=== PATIENT | female | born 1945 | race Caucasian/White ===

== ENCOUNTER → 2017-11-23 09:52 | Outpatient (REF) | payer MEDICARE, MEDICAID, SELFPAY ==
[2017-11-23 16:03] LABS: Amphetamine/Metha Screen,Urine Negative ng/mL (<1000); Barbiturates Screen,Urine Negative ng/mL (<200); Benzodiazepines Screen,Urine Negative ng/mL (200); Cannabinoid Screen,Urine Negative ng/mL (<50); Cocaine Screen,Urine Negative ng/g (<300); Methadone Screen,Urine Negative ng/mL (<300); Opiate Screen,Urine Positive ng/mL (<300); Phencyclidine Screen,Urine Negative ng/mL (<25)
== END ==
LOC: LAB 09:52
PROVIDERS: Visit Provider Physician Assistant
DX: M79.7 Fibromyalgia (principal); E11.9 Type 2 diabetes mellitus without complications; Z79.899 Other long term (current) drug therapy
CPT/HCPCS: 80305

== ENCOUNTER → 2017-12-18 13:42 | Outpatient (CLI) | payer MEDICARE, MEDICAID, SELFPAY ==
[2017-12-18 14:09] LABS: Basophils % 0.5 % (0.1-2.0); Eosinophils # 0.1 K/mm3 (0.0-0.4); Eosinophils % 1.9 % (0.1-12.0); Hematocrit 37.7 % (37.0-47.0); Lymphocytes # 1.3 K/mm3 (0.7-4.5); Mean Corpuscular HGB Conc 31.9 g/dL (31.8-35.4); Mean Corpuscular Hemoglobin 29.5 pg (27.0-31.2); Mean Corpuscular Volume 92.6 fl (81-99); Mean Platelet Volume 7.9 fl (7.4-10.4); Monocytes # 0.4 K/mm3 (0.1-1.0); Monocytes % 6.3 % (1.7-9.3); Neutrophils # 4.2 K/mm3 (1.8-7.8); Neutrophils % 69.4 % (37.0-80.0); Platelet Count 261 K/mm3 (142-424); Red Blood Count 4.07 M/mm3 (4.20-5.40); Red Cell Distribution Width 12.9 % (11.5-17.5)
[2017-12-18 16:50] LABS: Alanine Aminotransferase 19 U/L (12-78); Albumin Level 3.9 gm/dL (3.4-5.0); Albumin/Globulin Ratio 1.1 (1.1-1.8); Alkaline Phosphatase 114 U/L (46-116); Anion Gap 18.7 mEq/L (5-15); Aspartate Amino Transferase 27 U/L (15-37); Bilirubin,Total 0.3 mg/dL (0.2-1.0); Blood Urea Nitrogen 19 mg/dL (7-18); Calcium 9.3 mg/dL (8.5-10.1); Carbon Dioxide 21 mmol/L (21.0-32.0); Chloride 103 mmol/L (98-107); Chol/HDL Ratio 4.1 (1-3.5); Cholesterol 245 mg/dL (140-200); Creatinine,Serum 0.86 mg/dL (0.55-1.02); Estimated Glomerular Filt Rate 65 ml/min (>60); GFR (African American) 78 ML/MIN (>60); Globulin 3.4 gm/dl (1.3-3.2); Glucose 139 mg/dL (74-106); HDL Cholesterol 60 mg/dL (29-89); LDL Cholesterol 151 mg/dL (0-130); Potassium 4.7 mmoL/L (3.5-5.1); Sodium 138 mmol/L (136-145); T4 (Thyroxine) 7.1 ug/dl (4.7-13.3); Thyroid Stimulating Hormone 1.64 uIU/ml (0.358-3.740); Total Protein,Serum 7.3 gm/dL (6.4-8.2); Triglycerides 170 mg/dL (30-200); VLDL Cholesterol 34 mg/dL (0-40)
== END ==
PROVIDERS: PCP Physician Assistant; Visit Provider Physician Assistant
DX: M79.7 Fibromyalgia (principal); E11.9 Type 2 diabetes mellitus without complications
CPT/HCPCS: 36415; 80053; 80061; 84436; 84443; 85025

== ENCOUNTER → 2018-01-26 10:46 | Outpatient (CLI) | payer MEDICARE, MEDICAID, SELFPAY ==
--- NOTE | 2018-01-26 10:54 | MR_ITS ---
MR cervical spine wo con, MR 3-d myelogram/MRCP HISTORY: Neck pain, bilateral finger numbness/ tingling. ITS.REASON: CERVICAL SPONDYLOSIS WITH MYELOPATHY ORDERING PHYSICIAN: Cata Arreguin MD PATIENT AGE: 72 years COMPARISON: Radiograph of 01/26/2018 TECHNIQUE: Standard multiplanar multiecho sequences are performed without contrast. 3-D MIP and myelographic images are also rendered and reviewed FINDINGS: The craniocervical junction has an unremarkable appearance. C2-C3: Mild degenerative disc disease with minimal bulging disc along with facet and uncovertebral hypertrophy with mild bilateral foraminal narrowing. The bulging disc slightly eccentric towards the left. C3-C4: Degenerative disc disease with bulging disc along with facet and ligamentum flavum hypertrophy. There is canal stenosis of 8 mm with mild flattening of both anterior and posterior aspect of the cord. There is bilateral lateral recess and foraminal narrowing. C4-C5: Degenerative disc disease with bulging disc. There is 4 mm anterolisthesis of C4. The bulging discs/disc osteophyte complex which is eccentric towards the left. There is narrowing of the canal along with bilateral lateral recess and foraminal narrowing. This is more extensive on the left. There is mild impingement with flattening of the anterior and posterior aspect of the cord with slight increase in T2 signal of the cord at this region and may be due to edema or gliosis. C5-C6: Degenerative disc disease with minimal anterolisthesis of C5 of 2 mm mild facet hypertrophic change. Bilateral foraminal narrowing C6-C7: Degenerative disc disease with bulging disc. There is 3 mm anterolisthesis of C6. There is narrowing of the canal with only minimal flattening of the anterior aspect of the cord. There is moderate left-sided foraminal narrowing and mild right-sided foraminal narrowing. C7-T1: Degenerative disc disease with bulging disc with 3 mm anterolisthesis of C7. No canal stenosis. No extruded herniated disc are evident. IMPRESSION: Multilevel cervical spondylosis with degenerative disc disease, bulging disc, facet and uncovertebral hypertrophy with resulting lateral recess and foraminal narrowing as well as canal stenosis. Please see above for detailed description at each level. The canal stenosis is worse at C3-C4 and C4-C5 with some mild compression upon the cord with slight increased T2 signal of the cord at the C4-C5 level.
--- NOTE | 2018-01-26 11:59 | XR_ITS ---
XR cervical spine w flex/ext CLINICAL INDICATION: ITS.REASON: neck pain ORDERING PHYSICIAN: Cata Arreguin MD PATIENT AGE: 72 years COMPARISON: None FINDINGS: There is multilevel cervical spondylosis with degenerative disc disease along with endplate and facet hypertrophic changes. Degenerative disc disease present at C3-C4, C4-C5, C5-C6, and C6-C7. There is 2 mm anterolisthesis of C4 and 3 mm anterolisthesis of C5. Foraminal narrowing is present on the right or and C4-C5 and on the left at C3-C4 and C4-C5. Multilevel facet arthritic changes with hypertrophy is present at C3-C7. There is mild head tilt toward the right. No cervical rib apparent. No acute fracture or dislocation. IMPRESSION: Cervical spondylosis with multilevel degenerative disc disease and facet arthritic change with foraminal narrowing as described above Mild anterolisthesis of C4 and C5
[2018-01-26 13:02] LABS: Hemoglobin A1C 7.1 % (0.0-7.0)
[2018-01-26 13:11] LABS: Basophils % 0.3 % (0.1-2.0); Eosinophils # 0.1 K/mm3 (0.0-0.4); Eosinophils % 1.8 % (0.1-12.0); Hematocrit 37.5 % (37.0-47.0); Hemoglobin 11.4 g/dL (12.2-16.2); Lymphocytes # 1.3 K/mm3 (0.7-4.5); Lymphocytes % 21.4 K/mm3 (10-50); Mean Corpuscular HGB Conc 30.5 g/dL (31.8-35.4); Mean Corpuscular Hemoglobin 29.2 pg (27.0-31.2); Mean Corpuscular Volume 95.7 fl (81-99); Mean Platelet Volume 8.5 fl (7.4-10.4); Monocytes # 0.4 K/mm3 (0.1-1.0); Monocytes % 5.7 % (1.7-9.3); Neutrophils # 4.4 K/mm3 (1.8-7.8); Neutrophils % 70.9 % (37.0-80.0); Platelet Count 238 K/mm3 (142-424); Red Blood Count 3.92 M/mm3 (4.20-5.40); Red Cell Distribution Width 12.8 % (11.5-17.5); White Blood Count 6.2 K/mm3 (4.8-10.8)
[2018-01-26 14:32] LABS: Alanine Aminotransferase 18 U/L (12-78); Albumin Level 3.7 gm/dL (3.4-5.0); Albumin/Globulin Ratio 1.1 (1.1-1.8); Alkaline Phosphatase 109 U/L (46-116); Anion Gap 13.9 mEq/L (5-15); Bilirubin,Total 0.2 mg/dL (0.2-1.0); Blood Urea Nitrogen 20 mg/dL (7-18); Calcium 9.4 mg/dL (8.5-10.1); Carbon Dioxide 27 mmol/L (21.0-32.0); Chloride 104 mmol/L (98-107); Creatinine,Serum 0.83 mg/dL (0.55-1.02); Estimated Glomerular Filt Rate 67 ml/min (>60); GFR (African American) 82 ML/MIN (>60); Globulin 3.5 gm/dl (1.3-3.2); Glucose 148 mg/dL (74-106); Sodium 140 mmol/L (136-145); Thyroid Stimulating Hormone 1.71 uIU/ml (0.358-3.740); Total Protein,Serum 7.2 gm/dL (6.4-8.2)
[2018-01-26 14:40] LABS: Aspartate Amino Transferase 34 U/L (15-37); Potassium 4.9 mmoL/L (3.5-5.1)
[2018-01-27 12:18] LABS: Vitamin B12 228 pg/mL (232-1245)
== END ==
PROVIDERS: PCP Physician Assistant; Visit Provider Specialist
DX: M47.12 Other spondylosis with myelopathy, cervical region (principal); E10.42 Type 1 diabetes mellitus with diabetic polyneuropathy; R26.0 Ataxic gait; G62.9 Polyneuropathy, unspecified; R29.898 Other symptoms and signs involving the musculoskeletal system
CPT/HCPCS: 36415; 72052; 72141; 76376; 80053; 82607; 82746; 83036; 84443; 85025

== ENCOUNTER → 2018-02-18 12:30 | Outpatient (CLI) | payer MEDICARE, MEDICAID, SELFPAY ==
[2018-02-18 18:20] LABS: Amphetamine/Metha Screen,Urine Negative ng/mL (<1000); Barbiturates Screen,Urine Negative ng/mL (<200); Benzodiazepines Screen,Urine Negative ng/mL (200); Cannabinoid Screen,Urine Negative ng/mL (<50); Cocaine Screen,Urine Negative ng/g (<300); Methadone Screen,Urine Negative ng/mL (<300); Opiate Screen,Urine Negative ng/mL (<300); Phencyclidine Screen,Urine Negative ng/mL (<25)
== END ==
PROVIDERS: Visit Provider Emergency Medicine
DX: M79.7 Fibromyalgia (principal); E11.9 Type 2 diabetes mellitus without complications
CPT/HCPCS: 80305

== ENCOUNTER → 2018-04-15 10:30 | Outpatient (CLI) | payer MEDICARE, MEDICAID, SELFPAY ==
[2018-04-15 19:52] LABS: Amphetamine/Metha Screen,Urine Negative ng/mL (<1000); Barbiturates Screen,Urine Negative ng/mL (<200); Benzodiazepines Screen,Urine Negative ng/mL (200); Cannabinoid Screen,Urine Negative ng/mL (<50); Cocaine Screen,Urine Negative ng/g (<300); Methadone Screen,Urine Negative ng/mL (<300); Opiate Screen,Urine Positive ng/mL (<300); Phencyclidine Screen,Urine Negative ng/mL (<25)
== END ==
PROVIDERS: Visit Provider Emergency Medicine
DX: Z79.899 Other long term (current) drug therapy (principal); M54.9 Dorsalgia, unspecified; N39.0 Urinary tract infection, site not specified
CPT/HCPCS: 80305; 87086; 87088; 87186

== ENCOUNTER → 2018-05-16 11:03 | Outpatient (REF) | payer MEDICARE, MEDICAID, SELFPAY ==
[2018-05-16 14:22] LABS: Amphetamine/Metha Screen,Urine Negative ng/mL (<1000); Barbiturates Screen,Urine Negative ng/mL (<200); Benzodiazepines Screen,Urine Negative ng/mL (200); Cannabinoid Screen,Urine Negative ng/mL (<50); Cocaine Screen,Urine Negative ng/g (<300); Methadone Screen,Urine Negative ng/mL (<300); Opiate Screen,Urine Positive ng/mL (<300); Phencyclidine Screen,Urine Negative ng/mL (<25)
[2018-05-16 18:19] LABS: Anion Gap 18.1 mEq/L (5-15); Blood Urea Nitrogen 17 mg/dL (7-18); Calcium 8.9 mg/dL (8.5-10.1); Carbon Dioxide 24 mmol/L (21.0-32.0); Chloride 103 mmol/L (98-107); Creatinine,Serum 0.96 mg/dL (0.55-1.02); Estimated Glomerular Filt Rate 57 ml/min (>60); GFR (African American) 69 ML/MIN (>60); Glucose 139 mg/dL (74-106); Potassium 4.1 mmoL/L (3.5-5.1); Sodium 141 mmol/L (136-145)
== END ==
LOC: LAB 11:03
PROVIDERS: Visit Provider Emergency Medicine
DX: M79.7 Fibromyalgia (principal); R19.7 Diarrhea, unspecified; R53.83 Other fatigue
CPT/HCPCS: 80048; 80305

== ENCOUNTER → 2018-07-12 10:50 | Outpatient (REF) | payer MEDICARE, MEDICAID, SELFPAY ==
[2018-07-13 16:56] LABS: Amphetamine/Metha Screen,Urine Negative ng/mL (<1000); Barbiturates Screen,Urine Negative ng/mL (<200); Benzodiazepines Screen,Urine Negative ng/mL (<200); Cannabinoid Screen,Urine Negative ng/mL (<50); Cocaine Screen,Urine Negative ng/mL (<300); Methadone Screen,Urine Negative ng/mL (<300); Opiate Screen,Urine Negative ng/mL (<300); Phencyclidine Screen,Urine Negative ng/mL (<25)
== END ==
LOC: LAB 10:50
PROVIDERS: Visit Provider Physician Assistant
DX: M47.892 Other spondylosis, cervical region (principal)
CPT/HCPCS: 80305

== ENCOUNTER → 2018-07-14 07:56 | Outpatient (CLI) | payer MEDICARE, MEDICAID, SELFPAY | PROVIDERS: Visit Provider Emergency Medicine | DX: M47.892 Other spondylosis, cervical region (principal) ==

== ENCOUNTER → 2018-08-12 10:51 | Outpatient (CLI) | payer MEDICARE, MEDICAID, SELFPAY | PROVIDERS: Visit Provider Emergency Medicine | DX: R30.0 Dysuria (principal) ==

== ENCOUNTER → 2018-08-12 14:36 | Outpatient (REF) | payer MEDICARE, MEDICAID, SELFPAY ==
[2018-08-12 14:38] LABS: Microscopic, Urine URINE MICROSCOPIC (MICROSCOPIC)
[2018-08-12 14:49] LABS: Appearance,Urine TURBID (Clear); Blood, Urine 1+ (Negative); Color,Urine YELLOW (Yellow); Glucose,Urine (UA) Negative (Negative); Ketones,Urine Negative (Negative); Leukocyte Esterase,Urine 2+ (Negative); Nitrate,Urine Negative (Negative); PH,Urine 5.5 (5.0-8.5); Protein,Urine 1+ (Negative); Specific Gravity, Urine >= 1.030 (1.005-1.030); Urobilinogen,Urine 0.2 EU/dl (0.2)
[2018-08-12 15:30] LABS: Bilirubin,Urine Negative (Negative)
[2018-08-12 15:34] LABS: Amorphous Sediment,Urine 2+ /lpf
[2018-08-12 15:35] LABS: Bacteria,Urine Trace /lpf
== END ==
LOC: LAB 14:36
PROVIDERS: Visit Provider Emergency Medicine
DX: N39.0 Urinary tract infection, site not specified (principal)
CPT/HCPCS: 81001; 87086; 87088; 87186

== ENCOUNTER → 2018-09-07 14:43 | Outpatient (REF) | payer MEDICARE, MEDICAID, SELFPAY ==
[2018-09-07 20:11] LABS: Amphetamine/Metha Screen,Urine Negative ng/mL (<1000); Barbiturates Screen,Urine Negative ng/mL (<200); Benzodiazepines Screen,Urine Negative ng/mL (<200); Cannabinoid Screen,Urine Negative ng/mL (<50); Cocaine Screen,Urine Negative ng/mL (<300); Methadone Screen,Urine Negative ng/mL (<300); Opiate Screen,Urine Negative ng/mL (<300); Phencyclidine Screen,Urine Negative ng/mL (<25)
[2018-10-14 20:15] LABS: Oxycodone POSITIVE; Oxycodone Confirm 803
[2018-10-14 20:16] LABS: Oxymorphone NEGATIVE
== END ==
LOC: LAB 14:43
PROVIDERS: PCP Emergency Medicine; Visit Provider Emergency Medicine
DX: M47.892 Other spondylosis, cervical region (principal)
CPT/HCPCS: 80305; 80365

== ENCOUNTER → 2018-11-02 13:19 | Outpatient (CLI) | payer MEDICARE, MEDICAID, SELFPAY ==
[2018-11-02 14:51] LABS: Amphetamine/Metha Screen,Urine Negative ng/mL (<1000); Barbiturates Screen,Urine Negative ng/mL (<200); Benzodiazepines Screen,Urine Negative ng/mL (<200); Cannabinoid Screen,Urine Negative ng/mL (<50); Cocaine Screen,Urine Negative ng/mL (<300); Methadone Screen,Urine Negative ng/mL (<300); Opiate Screen,Urine Positive ng/mL (<300); Phencyclidine Screen,Urine Negative ng/mL (<25)
== END ==
PROVIDERS: Visit Provider Emergency Medicine
DX: M47.892 Other spondylosis, cervical region (principal)
CPT/HCPCS: 80305

== ENCOUNTER → 2019-01-30 15:06 | Outpatient (CLI) | payer MEDICARE, MEDICAID, SELFPAY ==
[2019-01-30 17:54] LABS: Amphetamine/Metha Screen,Urine Negative ng/mL (<1000); Barbiturates Screen,Urine Negative ng/mL (<200); Benzodiazepines Screen,Urine Negative ng/mL (<200); Cannabinoid Screen,Urine Negative ng/mL (<50); Cocaine Screen,Urine Negative ng/mL (<300); Methadone Screen,Urine Negative ng/mL (<300); Opiate Screen,Urine Negative ng/mL (<300); Phencyclidine Screen,Urine Negative ng/mL (<25)
[2019-02-01 11:17] LABS: Creatinine, Urine 131.5 mg/dL (Not Estab.); Microalbumin, Urine 63.6 ug/mL (Not Estab.)
== END ==
PROVIDERS: Visit Provider Emergency Medicine
DX: M47.812 Spondylosis without myelopathy or radiculopathy, cervical region (principal); E11.9 Type 2 diabetes mellitus without complications; Z79.84 Long term (current) use of oral hypoglycemic drugs
CPT/HCPCS: 80305; 82043; 82570

== ENCOUNTER → 2019-04-05 18:14 | Outpatient (CLI) | payer MEDICARE, MEDICAID, SELFPAY ==
[2019-04-05 19:58] LABS: Amphetamine/Metha Screen,Urine Negative ng/mL (<1000); Barbiturates Screen,Urine Negative ng/mL (<200); Benzodiazepines Screen,Urine Negative ng/mL (<200); Cannabinoid Screen,Urine Negative ng/mL (<50); Cocaine Screen,Urine Negative ng/mL (<300); Methadone Screen,Urine Negative ng/mL (<300); Opiate Screen,Urine Negative ng/mL (<300); Phencyclidine Screen,Urine Negative ng/mL (<25)
[2019-04-13 05:21] LABS: Oxycodone (GC/MS) 268 ng/mL (Cutoff=100)
[2019-04-13 12:33] LABS: Opiates Negative (Cutoff=100)
== END ==
PROVIDERS: Visit Provider Emergency Medicine
DX: R35.0 Frequency of micturition (principal); Z79.899 Other long term (current) drug therapy; M48.02 Spinal stenosis, cervical region
CPT/HCPCS: 80305; 80361; 80365; 87086; 87088; 87186; G0480

== ENCOUNTER → 2019-06-07 18:05 | Outpatient (CLI) | payer MEDICARE, MEDICAID, SELFPAY ==
[2019-06-07 19:22] LABS: Amphetamine/Metha Screen,Urine Negative ng/mL (<1000); Barbiturates Screen,Urine Negative ng/mL (<200); Benzodiazepines Screen,Urine Negative ng/mL (<200); Cannabinoid Screen,Urine Negative ng/mL (<50); Cocaine Screen,Urine Negative ng/mL (<300); Methadone Screen,Urine Negative ng/mL (<300); Opiate Screen,Urine Negative ng/mL (<300); Phencyclidine Screen,Urine Negative ng/mL (<25)
[2019-06-15 12:19] LABS: Oxycodone (GC/MS) 1443 ng/mL (Cutoff=100)
[2019-06-15 14:06] LABS: Opiates Negative (Cutoff=100); Oxymorphone (GC/MS) 101 ng/mL (Cutoff=100)
== END ==
PROVIDERS: Visit Provider Emergency Medicine
DX: M47.812 Spondylosis without myelopathy or radiculopathy, cervical region (principal); Z79.899 Other long term (current) drug therapy
CPT/HCPCS: 80305; 80361; 80365; G0480

== ENCOUNTER → 2019-07-13 10:10 | Outpatient (CLI) | payer MEDICARE, MEDICAID, SELFPAY ==
--- NOTE | 2019-07-13 10:13 | MM_ITS ---
PROCEDURE: MM DIG SCREENING MAMM BI W/CAD CLINICAL INDICATION: screening COMPARISON: MAMMO from 05/08/2009 DIG MAMMO BILAT SCREENING from 08/12/2010 TECHNIQUE: Standard CC and MLO images were obtained. R2 CAD reviewed. FINDINGS: Scattered fibroglandular densities are seen in both breasts. There are few benign-appearing microcalcifications in each breast. There is prominent arterial calcification in each breast. There is no suspicious lesion and no suspicious microcalcifications. IMPRESSION: Fibrofatty parenchyma with no suspicious lesions seen BI-RAD Category: 2 Benign Finding(s) FOLLOW-UP: 1YR 1 Year Follow-up (A letter has been sent to the patient regarding results of the study.) Dictated by: Dr. Negro Simeon MD 07/28/2019 11:[address] Negro Simeon MD in [place] 07/28/2019 11:31
== END ==
PROVIDERS: PCP Physician Assistant; Visit Provider Emergency Medicine
DX: Z12.31 Encounter for screening mammogram for malignant neoplasm of breast (principal)
CPT/HCPCS: 77067

== ENCOUNTER → 2019-08-02 14:21 | Outpatient (CLI) | payer MEDICARE, MEDICAID, SELFPAY ==
[2019-08-02 15:39] LABS: Amphetamine/Metha Screen,Urine Negative ng/mL (<1000); Barbiturates Screen,Urine Negative ng/mL (<200); Benzodiazepines Screen,Urine Negative ng/mL (<200); Cannabinoid Screen,Urine Negative ng/mL (<50); Cocaine Screen,Urine Negative ng/mL (<300); Methadone Screen,Urine Negative ng/mL (<300); Opiate Screen,Urine Negative ng/mL (<300); Phencyclidine Screen,Urine Negative ng/mL (<25)
[2019-08-08 16:22] LABS: Oxycodone Positive (.); Oxymorphone Negative (Cutoff=100)
[2019-08-10 06:09] LABS: Oxycodone Confirm 885 ng/mL (Cutoff=100)
== END ==
PROVIDERS: Visit Provider Emergency Medicine
DX: M47.812 Spondylosis without myelopathy or radiculopathy, cervical region (principal); R80.9 Proteinuria, unspecified; Z79.891 Long term (current) use of opiate analgesic
CPT/HCPCS: 80305; 80365; 87086; 87088; 87186

== ENCOUNTER 2019-08-04 12:54 | Outpatient (CLI) | payer MEDICARE, MEDICAID, SELFPAY ==
[2019-08-04 13:27] VITALS: BP 127/71; PULSE 94; RESP 18; O2SAT 98
== END 2019-08-04 13:45 | disposition home or self-care (01) ==
LOC: INF 12:59
PROVIDERS: PCP Emergency Medicine; Visit Provider Emergency Medicine
DX: N39.0 Urinary tract infection, site not specified (principal); Z16.12 Extended spectrum beta lactamase (ESBL) resistance
CPT/HCPCS: 96372; J1335

== ENCOUNTER → 2019-08-05 16:38 | Outpatient (CLI) | payer MEDICARE, MEDICAID, SELFPAY ==
[2019-08-05 17:06] VITALS: BP 117/80; PULSE 70; RESP 16; O2SAT 98
== END ==
PROVIDERS: PCP Emergency Medicine; Visit Provider Emergency Medicine
DX: N39.0 Urinary tract infection, site not specified (principal); Z16.12 Extended spectrum beta lactamase (ESBL) resistance
CPT/HCPCS: 96372; J1335

== ENCOUNTER → 2019-08-06 12:58 | Outpatient (CLI) | payer MEDICARE, MEDICAID, SELFPAY ==
[2019-08-06 13:20] VITALS: BP 130/79; PULSE 65; RESP 16; TEMP 36.6; O2SAT 98
== END ==
PROVIDERS: PCP Emergency Medicine; Visit Provider Emergency Medicine
DX: N39.0 Urinary tract infection, site not specified (principal); Z16.12 Extended spectrum beta lactamase (ESBL) resistance
CPT/HCPCS: 96372; J1335

== ENCOUNTER 2019-08-07 14:23 | Outpatient (CLI) | payer MEDICARE, MEDICAID, SELFPAY ==
[2019-08-07 14:25] VITALS: BMI 24.7
--- NOTE | 2019-08-07 14:37 | PC.NURSE ---
lab staff at to obtain pt blood for labs. pharmacy requested labs for baseline due to jackyanz margarita
[2019-08-07 14:59] LABS: Anion Gap 14.3 mEq/L (5-15); Blood Urea Nitrogen 20 mg/dL (7-18); Calcium 9.3 mg/dL (8.5-10.1); Carbon Dioxide 27 mmol/L (21.0-32.0); Chloride 102 mmol/L (98-107); Creatinine Clearance Estimated 46 mL/min (50-200); Creatinine,Serum 0.86 mg/dL (0.55-1.02); Estimated Glomerular Filt Rate 64 ml/min (>60); GFR (African American) 78 ML/MIN (>60); Glucose 104 mg/dL (74-106); Potassium 4.3 mmoL/L (3.5-5.1); Sodium 139 mmol/L (136-145)
[2019-08-07 15:32] VITALS: BP 125/62; PULSE 80; RESP 20; TEMP 36.6; O2SAT 97
== END 2019-08-07 15:38 | disposition home or self-care (01) ==
LOC: INF 14:23
PROVIDERS: PCP Emergency Medicine; Visit Provider Emergency Medicine
DX: N39.0 Urinary tract infection, site not specified (principal); Z16.12 Extended spectrum beta lactamase (ESBL) resistance
CPT/HCPCS: 36415; 80048; 96372; J1335

== ENCOUNTER 2019-08-08 15:30 | Outpatient (CLI) | payer MEDICARE, MEDICAID, SELFPAY ==
[2019-08-08 15:58] VITALS: BP 135/67; PULSE 68; RESP 20; O2SAT 95
== END 2019-08-08 16:10 | disposition home or self-care (01) ==
LOC: INF 15:48
PROVIDERS: PCP Emergency Medicine; Visit Provider Emergency Medicine
DX: Z16.12 Extended spectrum beta lactamase (ESBL) resistance (principal); N39.0 Urinary tract infection, site not specified
CPT/HCPCS: 96372; J1335

== ENCOUNTER 2019-08-09 15:02 | Outpatient (CLI) | payer MEDICARE, MEDICAID, SELFPAY ==
[2019-08-09 15:15] VITALS: BP 131/74; PULSE 81; RESP 20; O2SAT 96
== END 2019-08-09 15:20 | disposition home or self-care (01) ==
LOC: INF 15:02
PROVIDERS: Visit Provider Emergency Medicine
DX: N39.0 Urinary tract infection, site not specified (principal); Z16.12 Extended spectrum beta lactamase (ESBL) resistance
CPT/HCPCS: 96372

== ENCOUNTER 2019-08-10 12:10 | Outpatient (CLI) | payer MEDICARE, MEDICAID, SELFPAY ==
[2019-08-10 12:24] VITALS: BP 124/69; PULSE 67; RESP 18; TEMP 36.7; O2SAT 95
--- NOTE | 2019-08-10 12:24 | PC.NURSE ---
08/10/19 1224 Invanz 1 gram IM given, 500mg R gluteus max, 500mg L gluteus max/ pt philip wel
== END 2019-08-10 12:40 | disposition home or self-care (01) ==
LOC: INF 12:11
PROVIDERS: Visit Provider Emergency Medicine
DX: N39.0 Urinary tract infection, site not specified (principal); Z16.12 Extended spectrum beta lactamase (ESBL) resistance
CPT/HCPCS: 96372; J1335

== ENCOUNTER → 2019-10-23 12:44 | Outpatient (CLI) | payer MEDICARE, MEDICAID, SELFPAY ==
[2019-10-23 12:51] LABS: Microscopic, Urine URINE MICROSCOPIC (MICROSCOPIC)
[2019-10-23 13:50] LABS: Appearance,Urine SL CLOUDY (Clear); Bilirubin,Urine Negative (Negative); Blood, Urine 1+ (Negative); Color,Urine YELLOW (Yellow); Glucose,Urine (UA) Negative (Negative); Ketones,Urine Negative (Negative); Leukocyte Esterase,Urine 1+ (Negative); Nitrate,Urine Negative (Negative); Protein,Urine TRACE (Negative); Urobilinogen,Urine 0.2 EU/dl (0.2)
[2019-10-23 13:55] LABS: Creatinine,Urine Random 80 mg/dL (20-320); Total Protein,Urine Random 34.7 mg/dL (0.0-11.9)
[2019-10-23 14:43] LABS: Anion Gap 19.2 mEq/L (5-15); Blood Urea Nitrogen 17 mg/dL (7-18); Calcium 9.5 mg/dL (8.5-10.1); Carbon Dioxide 24 mmol/L (21.0-32.0); Chloride 101 mmol/L (98-107); Creatinine,Serum 0.93 mg/dL (0.55-1.02); Estimated Glomerular Filt Rate 59 ml/min (>60); GFR (African American) 71 ML/MIN (>60); Glucose 110 mg/dL (74-106); Phosphorous 3.4 mg/dL (2.4-4.9); Potassium 4.2 mmoL/L (3.5-5.1); Sodium 140 mmol/L (136-145)
[2019-10-23 15:57] LABS: Bacteria,Urine Trace /lpf; Squamous Epithelial Cell,Urine Occasional #/hpf (0-5)
[2019-10-23 16:29] LABS: Basophils % 0.6 % (0.1-2.0); Eosinophils # 0.1 K/mm3 (0.0-0.4); Eosinophils % 0.9 % (0.1-12.0); Hemoglobin 12.4 g/dL (12.2-16.2); Lymphocytes # 1.9 K/mm3 (0.7-4.5); Mean Corpuscular HGB Conc 32.6 g/dL (31.8-35.4); Mean Platelet Volume 9.5 fl (7.4-10.4); Monocytes # 0.4 K/mm3 (0.1-1.0); Monocytes % 6.2 % (1.7-9.3); Neutrophils # 4.2 K/mm3 (1.8-7.8); Neutrophils % 63.5 % (37.0-80.0); Platelet Count 218 K/mm3 (142-424); Red Blood Count 4.13 M/mm3 (4.20-5.40); Red Cell Distribution Width 13.8 % (11.5-17.5); White Blood Count 6.6 K/mm3 (4.8-10.8)
[2019-10-24 16:28] LABS: Parathyroid Hormone Intact 29 pg/mL (15-65)
[2019-10-25 14:09] LABS: Vitamin D 25 Hydroxy 10.7 ng/mL (30.0-100.0)
== END ==
PROVIDERS: Visit Provider Internal Medicine Nephrology
DX: R80.9 Proteinuria, unspecified (principal)
CPT/HCPCS: 36415; 80069; 81001; 82570; 82652; 83970; 84155; 85025; 87086; 87088; 87186

== ENCOUNTER → 2019-11-27 17:52 | Outpatient (CLI) | payer MEDICARE, MEDICAID, SELFPAY ==
[2019-11-27 21:51] LABS: Amphetamine/Metha Screen,Urine Negative ng/mL (<1000); Barbiturates Screen,Urine Negative ng/mL (<200); Benzodiazepines Screen,Urine Negative ng/mL (<200); Cannabinoid Screen,Urine Negative ng/mL (<50); Cocaine Screen,Urine Negative ng/mL (<300); Methadone Screen,Urine Negative ng/mL (<300); Opiate Screen,Urine Negative ng/mL (<300); Phencyclidine Screen,Urine Negative ng/mL (<25)
== END ==
PROVIDERS: Visit Provider Emergency Medicine
DX: M47.812 Spondylosis without myelopathy or radiculopathy, cervical region (principal); R80.9 Proteinuria, unspecified
CPT/HCPCS: 80305; 87086; 87088; 87186

== ENCOUNTER 2019-11-30 12:39 | Outpatient (CLI) | payer MEDICARE, MEDICAID, SELFPAY ==
[2019-11-30 12:56] VITALS: BP 131/74; PULSE 80; RESP 18; TEMP 36.6; O2SAT 100
== END 2019-11-30 13:22 | disposition home or self-care (01) ==
PROVIDERS: PCP Emergency Medicine; Visit Provider Emergency Medicine
DX: N39.0 Urinary tract infection, site not specified (principal); Z16.12 Extended spectrum beta lactamase (ESBL) resistance
CPT/HCPCS: 96372; J1335

== ENCOUNTER → 2020-08-13 13:58 | Outpatient (CLI) | payer MEDICARE, MEDICAID, SELFPAY ==
[2020-08-13 14:06] LABS: Basophils % 0.5 % (0.1-2.0); Eosinophils # 0.1 K/mm3 (0.0-0.4); Eosinophils % 0.9 % (0.1-12.0); Hematocrit 33.3 % (37.0-47.0); Hemoglobin 10.8 g/dL (12.2-16.2); Lymphocytes # 1.3 K/mm3 (0.7-4.5); Lymphocytes % 16.4 % (10-50); Mean Corpuscular HGB Conc 32.4 g/dL (31.8-35.4); Mean Corpuscular Hemoglobin 30.9 pg (27.0-31.2); Mean Corpuscular Volume 95.6 fl (81-99); Mean Platelet Volume 8.7 fl (7.4-10.4); Monocytes # 0.5 K/mm3 (0.1-1.0); Monocytes % 6.1 % (1.7-9.3); Neutrophils # 6.2 K/mm3 (1.8-7.8); Neutrophils % 76.1 % (37.0-80.0); Platelet Count 214 K/mm3 (142-424); Red Blood Count 3.49 M/mm3 (4.20-5.40); Red Cell Distribution Width 13.3 % (11.5-17.5); White Blood Count 8.1 K/mm3 (4.8-10.8)
[2020-08-13 14:57] LABS: Alanine Aminotransferase 9 U/L (12-78); Albumin Level 4.2 g/dl (3.5-5.0); Albumin/Globulin Ratio 1.4 (1.1-1.8); Alkaline Phosphatase 114 U/L (38-126); Anion Gap 13.9 mEq/L (5-15); Aspartate Amino Transferase 32 U/L (14-36); Bilirubin,Total 0.4 mg/dl (0.2-1.3); Blood Urea Nitrogen 23 mg/dl (7-17); Calcium 9.9 mg/dl (8.4-10.2); Carbon Dioxide 25 mmol/L (22.0-30.0); Chloride 106 mmol/L (98-107); Estimated Glomerular Filt Rate 29 ml/min (>60); GFR (African American) 35 ML/MIN (>60); Glucose 161 mg/dl (74-100); Potassium 5.9 mmoL/L (3.5-5.1); Sodium 139 mmol/L (136-145); Total Protein,Serum 7.2 g/dl (6.3-8.2)
== END ==
PROVIDERS: Visit Provider Emergency Medicine
DX: E11.9 Type 2 diabetes mellitus without complications (principal); Z79.4 Long term (current) use of insulin
CPT/HCPCS: 80053; 85025

== ENCOUNTER 2020-10-09 11:49 | Emergency (ER) | payer MEDICARE, MEDICAID, SELFPAY ==
[2020-10-09] VITALS (9 sets, daily range): BP systolic 120–182; BP diastolic 65–103; PULSE 97–125; RESP 12–18; TEMP 37.4; O2SAT 93–100; BMI 22.3
--- NOTE | 2020-10-09 12:03 | ECG_ITS ---
APPROVED REPORT Exam: Resting ECG HR:116 bpm ECG Measurements Heart Rate 116 AXES AL 178 P 74 QRSd 66 QRS 51 QT 304 T 111 QTc 422 Conclusion Sinus tachycardia Low voltage QRS ST & T wave abnormality, consider lateral ischemia Abnormal ECG Electronically signed by : Devin Combs, 10/11/2020 19:22:57
--- NOTE | 2020-10-09 12:03 | HMH.EDGENADL ---
ED Disposition Clinical Impression: Sinus tachycardia, Hyperkalemia Disposition: Home, Self-Care Condition on Discharge: Good Instructions: Cardiac Arrhythmia (Alternative Therapy) Additional Instructions: Stop taking your Potassium pill. Maintain your next appt with your doctor. Referrals: Fracisco Huynh MD [Primary Care Provider] - Time of Disposition: 14:31 - Critical Care Critical Care Time: No Attestation: On , the high probability of a clinically significant, sudden or life threatening deterioration of the following system(s) required my full and direct attention, intervention and personal management. The time I documented below is in addition to time spent performing reported procedures but includes the following listed in this critical care notation. Medical Decision Making - Bhupendra Inquiry Pt receiving controlled substance: No Bhupendra was queried for this patient: No Vital Signs: 10/09/20 11:50 10/09/20 12:20 10/09/20 12:30 Temperature 99.3 F Temperature Source Oral Pulse Rate [Apical] 125 H 113 H 110 H Respiratory Rate 18 Blood Pressure [Right Arm] 182/88 H 154/81 H 154/81 H Blood Pressure Mean [Right Arm] 119 105 105 Blood Pressure Source [Right Arm] Automatic Cuff Automatic Cuff Automatic Cuff Blood Pressure Position [Right Arm] Sitting Sitting Sitting 02 Sat by Pulse Oximetry 95 98 99 Oxygen Delivery Method Room Air Room Air Room Air 10/09/20 13:00 10/09/20 13:30 10/09/20 14:00 Temperature Temperature Source Pulse Rate [Apical] 104 H 101 H 101 H Respiratory Rate 15 12 12 Blood Pressure [Right Arm] 143/73 H 135/67 135/67 Blood Pressure Mean [Right Arm] 96 89 89 Blood Pressure Source [Right Arm] Automatic Cuff Automatic Cuff Automatic Cuff Blood Pressure Position [Right Arm] Sitting Sitting Sitting 02 Sat by Pulse Oximetry 98 93 L 99 Oxygen Delivery Method Room Air Room Air Room Air - Lab Data Lab Results 10/09/20 12:13: WBC 10.2, RBC 3.67 L, Hgb 11.1 L, Hct 34.4 L, MCV 93.6, MCH 30.3, MCHC 32.3, RDW 13.6, Plt Count 260, MPV 8.0, Neut % (Auto) 87.8 H, Lymph % (Auto) 8.2 L, Braxton % (Auto) 3.3, Eos % (Auto) 0.5, Baso % (Auto) 0.3, Neut # (Auto) 8.9 H, Lymph # (Auto) 0.8, Braxton # (Auto) 0.3, Eos # (Auto) 0.1, Baso # (Auto) 0.0, Total Counted 100, Neutrophils % (Manual) 94 H, Lymphocytes % (Manual) 4 L, Monocytes % (Manual) 2, Platelet Estimate Normal, RBC Morphology Normal 10/09/20 12:13: Sodium 135 L, Potassium 5.7 H, Chloride 103, Carbon Dioxide 22, Anion Gap 15.7 H, BUN 26 H, Creatinine 1.30 H, Estimated Creat Clear 31, Estimated GFR 40 L, Est GFR ( Amer) 48 L, Glucose 163 H, Calcium 9.6, Total Bilirubin 0.6, AST 36, ALT 15, Alkaline Phosphatase 91, Troponin I < 0.01, NT-Pro-B Natriuret Pep 189, Total Protein 7.8, Albumin 4.4, Globulin 3.4 H, Albumin/Globulin Ratio 1.3, TSH 2.30 Result diagrams: 10/09/20 12:13 10/09/20 12:13 Orders (Tests/Meds): ED MEDICATIONS Generic Name Dose Route Start Last Admin Trade Name Freq PRN Reason Stop Dose Admin Sodium Chloride 1,000 mls @ 500 mls/hr 10/09/20 13:45 10/09/20 13:37 Sod Chlor 0.9% 1000ml Bag IV 11/08/20 13:44 500 mls/hr .Q2H BRADLY Administration Sodium Chloride 10 ml 10/09/20 12:23 Sodium Chloride 0.9% 10ml Vial IV 11/08/20 12:22 NEEDED PRN to Dilute Lorazepam inj Discontinued Medications Generic Name Dose Route Start Last Admin Trade Name Freq PRN Reason Stop Dose Admin Sodium Chloride 1,000 mls @ 999 mls/hr 10/09/20 12:30 10/09/20 12:27 Sod Chlor 0.9% 1000ml Bag IV 10/09/20 13:30 Not Given .Q1H1M BRADLY Lorazepam 0.5 mg 10/09/20 12:23 10/09/20 12:26 Lorazepam 2mg/Ml Vial IV 10/09/20 12:24 Not Given ONCE ONE Metoclopramide HCl 5 mg 10/09/20 12:36 10/09/20 12:39 Metoclopramide Hcl 10mg/2ml Vial IVP 10/09/20 12:37 5 mg ONCE ONE Administration Ondansetron HCl 4 mg 10/09/20 12:25 10/09/20 12:27 Ondansetron 4mg/2ml Vial IV 10/09/20 12:26 Not
--- NOTE | 2020-10-09 12:10 | CA_ITS ---
APPROVED REPORT EXAM: Comprehensive 2D, Doppler, and color-flow Echocardiogram Biazzi Nitrator Operator: Madison Clayton RT(R) Ht: 5 ft 1 in Wt: 118lbs BSA: 1.51 BP: 182/88 mmHg Indications: HTN, DM, hyperlipidemia, tachycardia, CKD, GERD M-Mode Dimensions RVDd 2.30 cm (0.9-2.6) LA Diam 2.69 cm (1.9-4.0) LVDd 3.91 cm (3.5-5.7) Ao Diam 2.22 cm (2.0-3.7) LVDs 3.01 cm (3.5-5.7) IVSd 1.04 cm (0.6-1.1) PWd 0.57 cm (0.6-1.1) EF (Teich) 46.80% FS 23.00% EDV (Teich) 66.30 mL ESV (Teich) 35.30 mL LV Diastology E Decel Time 150.00 (160-240 msec) E/A Ratio 0.7 MED E' 5.90 (< 7 cm/sec) E'/MED E' Ratio 10.83 (>14) LAT E' 9.60 (<10 cm/sec) E/LAT E' Ratio 6.66 (>14) Mitral Valve MV E Max Americo. 64.00 (40-130 cm/s) MV A Velocity 90.00 (40-130 cm/s) E/A Ratio 0.71 MV Decel. Time 150.00 (160-240 ms) MV PHT 44.00 ms Tricuspid Valve TR P. Velocity 212.00 cm/s RAP Estimate 15.00 mmHg RVSP 32.90 mmHg Left Ventricle Left atrium is mildly enlarged, left ventricle is normal size, mild concentric left ventricular hypertrophy, hyperdynamic left ventricular systolic response, visually estimated ejection fraction over 65% with no regional wall motion abnormality, grade 1 diastolic dysfunction seen without tissue Doppler evidence of raise left atrial pressure. Right Ventricle Right atrium and right ventricular qualitatively mildly enlarged with normal contractility. Aortic Valve Aortic valve is thickened and calcified, without Doppler evidence of aortic stenosis or aortic insufficiency. Mitral Valve Mitral valve leaflets are minimally thickened, there is no mitral stenosis, there is mild mitral regurgitation. Pulmonic Valve Pulmonic valve is poorly visualized. Great Vessels Aortic root is normal size. Pericardium No significant pericardial effusion noted. Conclusion 1. Mildly enlarged left atrium, normal left ventricular size, hyperdynamic left ventricular systolic function, visually estimated ejection fraction over 65% with no regional wall motion abnormality, grade 1 diastolic dysfunction seen without tissue Doppler evidence of raise left atrial pressure. 2. Mildly enlarged right ventricle with normal contractility. 3. Thickened and calcified aortic valve without Doppler evidence of aortic stenosis or aortic insufficiency. 4. Mild mitral and tricuspid regurgitation. 5. No significant pericardial effusion noted. Electronically signed by : Gal Martinez, 10/10/2020 10:29:12
--- NOTE | 2020-10-09 12:18 | XR_ITS ---
PROCEDURE: XR CHEST PORTABLE CLINICAL HISTORY: tachycardia Elevated blood pressure COMPARISON: No exams were available for comparison FINDINGS: The cardiomediastinal silhouette and pulmonary vascularity are within normal limits. The lungs are clear without infiltrates, suspicious nodules, or pleural effusions. Degenerative changes of the shoulders. Calcified granuloma is present in the left lower lobe. IMPRESSION: No acute findings. Dictated by: Kirby Fay MD 10/09/2020 14:27 Kirby Fay MD in [place] 10/09/2020 14:27
--- NOTE | 2020-10-09 12:20 | PC.NURSE ---
notified [facility] lab staff of echo order, spoke with Madison
--- NOTE | 2020-10-09 12:24 | PC.NURSE ---
radiology at bedside with portable x-ray
[2020-10-09 12:33] LABS: Basophils % 0.3 % (0.1-2.0); Eosinophils # 0.1 K/mm3 (0.0-0.4); Eosinophils % 0.5 % (0.1-12.0); Hematocrit 34.4 % (37.0-47.0); Hemoglobin 11.1 g/dL (12.2-16.2); Lymphocytes # 0.8 K/mm3 (0.7-4.5); Lymphocytes % 8.2 % (10-50); Mean Corpuscular HGB Conc 32.3 g/dL (31.8-35.4); Mean Corpuscular Hemoglobin 30.3 pg (27.0-31.2); Mean Corpuscular Volume 93.6 fl (81-99); Monocytes # 0.3 K/mm3 (0.1-1.0); Monocytes % 3.3 % (1.7-9.3); Neutrophils # 8.9 K/mm3 (1.8-7.8); Neutrophils % 87.8 % (37.0-80.0); Platelet Count 260 K/mm3 (142-424); Red Blood Count 3.67 M/mm3 (4.20-5.40); Red Cell Distribution Width 13.6 % (11.5-17.5); White Blood Count 10.2 K/mm3 (4.8-10.8)
[2020-10-09 12:36] LABS: MANUAL DIFFERENTIAL MANUAL DIFFERENTIAL (MANUAL DIFF)
[2020-10-09 12:42] LABS: Chloride 103 mmol/L (98-107); Potassium 5.7 mmoL/L (3.5-5.1); Sodium 135 mmol/L (136-145)
[2020-10-09 12:44] LABS: Alanine Aminotransferase 15 U/L (12-78); Blood Urea Nitrogen 26 mg/dl (7-17); Creatinine Clearance Estimated 31 mL/min (50-200); Estimated Glomerular Filt Rate 40 ml/min (>60); GFR (African American) 48 ML/MIN (>60)
[2020-10-09 12:45] LABS: Albumin Level 4.4 g/dl (3.5-5.0); Albumin/Globulin Ratio 1.3 (1.1-1.8); Alkaline Phosphatase 91 U/L (38-126); Anion Gap 15.7 mEq/L (5-15); Aspartate Amino Transferase 36 U/L (14-36); Bilirubin,Total 0.6 mg/dl (0.2-1.3); Calcium 9.6 mg/dl (8.4-10.2); Carbon Dioxide 22 mmol/L (22.0-30.0); Globulin 3.4 g/dL (1.3-3.2); Glucose 163 mg/dl (74-100); Total Protein,Serum 7.8 g/dl (6.3-8.2)
[2020-10-09 12:58] LABS: NT Pro Brain Natriuretic Pep. 189 pg/mL (0-450)
[2020-10-09 13:02] LABS: Troponin I < 0.01 ng/ml (0.00-0.034)
[2020-10-09 13:12] LABS: Lymphocytes % 4 % (10-50); Monocytes % 2 % (2-9); Neutrophils % 94 % (42-76); Platelet Estimate Normal; RBC Morphology Normal; Total Cells Counted 100
--- NOTE | 2020-10-09 14:32 | PC.NURSE ---
Called Kate, patients congregational care pastor on her behalf to let her know pt is getting discharged and needs to follow up with Dr Huynh
--- NOTE | 2020-10-09 15:26 | XR_ITS ---
PROCEDURE: XR KNEE LT 3V CLINICAL INDICATION: pain, swelling COMPARISON: No exams were available for comparison FINDINGS: Moderate to severe osteoarthritic changes are present at the lateral compartment with moderate osteoarthritis of the medial compartment and patellofemoral joint. There is mild lateral subluxation of the tibia by approximately 6 mm. Soft tissue calcifications are present at the medial aspect of the knee. IMPRESSION: Osteoarthritis of the left knee moderate to severe laterally and moderate medially and at the patellofemoral joint Dictated by: Kirby Fay MD 10/09/2020 15:59 Kirby Fay MD in [place] 10/09/2020 15:59
--- NOTE | 2020-10-09 15:28 | PC.NURSE ---
getting pt in wheelchair at d/c, pt c/o trouble bearing weight in LLE r/t knee pain. Pt reports she fell approx 1 month ago, reports continued pain since that fall, swelling noted. notified ER who gave a verbal order for xray
--- NOTE | 2020-10-09 15:42 | PC.NURSE ---
Radiology at bedside for portable x-ray
== END 2020-10-09 15:49 | disposition home or self-care (01) ==
PROVIDERS: Emergency Provider Family Medicine; PCP Emergency Medicine
DX: M25.561 Pain in right knee (principal); I10 Essential (primary) hypertension; E78.5 Hyperlipidemia, unspecified; E11.65 Type 2 diabetes mellitus with hyperglycemia; K21.9 Gastro-esophageal reflux disease without esophagitis; M79.7 Fibromyalgia; G20 Parkinson's disease; Z79.899 Other long term (current) drug therapy
CPT/HCPCS: 71045; 73562; 80053; 83880; 84443; 84484; 85007; 85025; 93005; 93306; 96365; 96375; 99283

== ENCOUNTER → 2021-02-05 14:33 | Outpatient (CLI) | payer MEDICARE, MEDICAID, SELFPAY ==
[2021-02-05 14:40] LABS: Chloride 105 mmol/L (98-107); Sodium 139 mmol/L (136-145)
[2021-02-05 14:41] LABS: Potassium 4.7 mmoL/L (3.5-5.1)
[2021-02-05 14:43] LABS: Blood Urea Nitrogen 26 mg/dl (7-17); Estimated Glomerular Filt Rate 70 ml/min (>60); GFR (African American) 84 ML/MIN (>60)
[2021-02-05 14:44] LABS: Anion Gap 16.7 mEq/L (5-15); Calcium 9.9 mg/dl (8.4-10.2); Carbon Dioxide 22 mmol/L (22.0-30.0); Glucose 143 mg/dl (74-100)
[2021-02-05 15:35] LABS: Amphetamine/Metha Screen,Urine Negative ng/ml (<1000)
[2021-02-05 15:36] LABS: Barbiturates Screen,Urine Negative ng/ml (<200); Benzodiazepines Screen,Urine Negative ng/ml (<200)
[2021-02-05 15:37] LABS: Cocaine Screen,Urine Negative ng/ml (<300)
[2021-02-05 15:38] LABS: Cannabinoid Screen,Urine Negative ng/ml (<50); Methadone Screen,Urine Negative ng/ml (<300)
[2021-02-05 15:39] LABS: Opiate Screen,Urine Negative ng/ml (<300)
[2021-02-05 15:40] LABS: Phencyclidine Screen,Urine Negative ng/ml (<25)
== END ==
PROVIDERS: Visit Provider Emergency Medicine
DX: M47.812 Spondylosis without myelopathy or radiculopathy, cervical region (principal); I10 Essential (primary) hypertension
CPT/HCPCS: 80048; 80305

== ENCOUNTER → 2022-06-29 07:02 | Outpatient (CLI) | payer MEDICARE, MEDICAID, SELFPAY ==
[2022-06-29 15:40] LABS: Basophils % 0.7 % (0.1-2.0); Eosinophils # 0.1 K/mm3 (0.0-0.4); Eosinophils % 2.1 % (0.1-12.0); Hematocrit 35.1 % (37.0-47.0); Lymphocytes % 18.8 % (10-50); Mean Corpuscular HGB Conc 31.2 g/dL (31.8-35.4); Mean Corpuscular Hemoglobin 29.5 pg (27.0-31.2); Mean Corpuscular Volume 94.6 fl (81-99); Mean Platelet Volume 10.1 fl (7.4-10.4); Monocytes # 0.4 K/mm3 (0.1-1.0); Monocytes % 7.4 % (1.7-9.3); Neutrophils # 3.8 K/mm3 (1.8-7.8); Neutrophils % 70.9 % (37.0-80.0); Platelet Count 248 K/mm3 (142-424); Red Blood Count 3.71 M/mm3 (4.20-5.40); Red Cell Distribution Width 13.8 % (11.5-17.5); White Blood Count 5.4 K/mm3 (4.8-10.8)
[2022-06-29 15:43] LABS: Alanine Aminotransferase 11 U/L (12-78); Albumin Level 3.7 g/dl (3.5-5.0); Albumin/Globulin Ratio 1.2 (1.1-1.8); Alkaline Phosphatase 132 U/L (38-126); Anion Gap 12.7 mEq/L (5-15); Aspartate Amino Transferase 30 U/L (14-36); Bilirubin,Total 0.2 mg/dl (0.2-1.3); Blood Urea Nitrogen 22 mg/dl (7-17); Calcium 9.3 mg/dl (8.4-10.2); Carbon Dioxide 24 mmol/L (22.0-30.0); Chloride 105 mmol/L (98-107); Chol/HDL Ratio 3.7 (1-3.5); Cholesterol 209 mg/dl (140-200); Estimated Glomerular Filt Rate 61 ml/min (>60); GFR (African American) 73 ML/MIN (>60); Glucose 180 mg/dl (74-100); HDL Cholesterol 56 mg/dl (40-60); Potassium 4.7 mmoL/L (3.5-5.1); Sodium 137 mmol/L (136-145); Total Protein,Serum 6.7 g/dl (6.3-8.2); Triglycerides 174 mg/dl (30-150); VLDL Cholesterol 35 mg/dL (0-40)
[2022-06-29 16:16] LABS: Thyroid Stimulating Hormone 3.26 uIU/mL (0.465-4.68)
[2022-06-29 16:52] LABS: Hemoglobin A1C 6.8 % (4.0-6.0)
[2022-07-01 08:37] LABS: Direct LDL Cholesterol 118 mg/dL (100-129)
== END ==
PROVIDERS: PCP Emergency Medicine; Visit Provider Emergency Medicine
DX: E10.40 Type 1 diabetes mellitus with diabetic neuropathy, unspecified (principal); E55.9 Vitamin D deficiency, unspecified; Z79.4 Long term (current) use of insulin
CPT/HCPCS: 80053; 80061; 82306; 83036; 84439; 84443; 85025

== ENCOUNTER → 2023-09-10 10:10 | Outpatient (CLI) | payer MEDICARE, MEDICAID, SELFPAY ==
[2023-09-10 10:41] LABS: Basophils % 0.7 % (0.1-2.0); Eosinophils # 0.1 K/mm3 (0.0-0.4); Eosinophils % 2.5 % (0.1-12.0); Hematocrit 33.9 % (37.0-47.0); Hemoglobin 11.5 g/dL (12.2-16.2); Lymphocytes # 1.3 K/mm3 (0.7-4.5); Lymphocytes % 26.4 % (10-50); Mean Corpuscular HGB Conc 33.8 g/dL (31.8-35.4); Mean Corpuscular Hemoglobin 30.1 pg (27.0-31.2); Mean Corpuscular Volume 88.9 fl (81-99); Mean Platelet Volume 8.2 fl (7.4-10.4); Monocytes # 0.3 K/mm3 (0.1-1.0); Monocytes % 5.9 % (1.7-9.3); Neutrophils # 3.2 K/mm3 (1.8-7.8); Neutrophils % 64.4 % (37.0-80.0); Platelet Count 222 K/mm3 (142-424); Red Blood Count 3.81 M/mm3 (4.20-5.40); Red Cell Distribution Width 14.4 % (11.5-17.5); White Blood Count 4.9 K/mm3 (4.8-10.8)
[2023-09-10 11:12] LABS: Alanine Aminotransferase 13 U/L (12-78); Albumin Level 3.9 g/dl (3.5-5.0); Albumin/Globulin Ratio 1.1 (1.1-1.8); Alkaline Phosphatase 98 U/L (38-126); Anion Gap 13.1 mEq/L (5-15); Aspartate Amino Transferase 29 U/L (14-36); Bilirubin,Total 0.4 mg/dl (0.2-1.3); Blood Urea Nitrogen 29 mg/dl (7-17); Calcium 9.5 mg/dl (8.4-10.2); Carbon Dioxide 25 mmol/L (22.0-30.0); Chloride 105 mmol/L (98-107); Chol/HDL Ratio 3.4 (1-3.5); Cholesterol 219 mg/dl (140-200); Estimated Glomerular Filt Rate 60 ml/min (>60); GFR (African American) 73 ML/MIN (>60); Globulin 3.4 g/dL (1.3-3.2); Glucose 118 mg/dl (74-100); HDL Cholesterol 65 mg/dl (40-60); Potassium 4.1 mmoL/L (3.5-5.1); Sodium 139 mmol/L (136-145); Total Protein,Serum 7.3 g/dl (6.3-8.2); Triglycerides 122 mg/dl (30-150); VLDL Cholesterol 24 mg/dL (0-40)
[2023-09-10 11:29] LABS: T4 (Thyroxine) 9.5 ug/dl (5.53-11.0)
[2023-09-10 11:34] LABS: Hemoglobin A1C 6.2 % (4.0-6.0)
[2023-09-10 11:43] LABS: Thyroid Stimulating Hormone 2.44 uIU/mL (0.465-4.68)
== END ==
PROVIDERS: PCP Emergency Medicine; Visit Provider Emergency Medicine
DX: M79.7 Fibromyalgia (principal); E10.40 Type 1 diabetes mellitus with diabetic neuropathy, unspecified; E55.9 Vitamin D deficiency, unspecified; J44.9 Chronic obstructive pulmonary disease, unspecified; Z68.28 Body mass index [BMI] 28.0-28.9, adult
CPT/HCPCS: 36415; 80053; 80061; 82306; 83036; 84436; 84443; 85025

== ENCOUNTER → 2023-11-08 08:41 | Outpatient (CLI) | payer MEDICARE, MEDICAID, SELFPAY ==
[2023-11-08 18:28] LABS: Basophils % 0.4 % (0.1-2.0); Eosinophils # 0.1 K/mm3 (0.0-0.4); Eosinophils % 1.8 % (0.1-12.0); Hematocrit 36.6 % (37.0-47.0); Hemoglobin 12.2 g/dL (12.2-16.2); Lymphocytes # 1.2 K/mm3 (0.7-4.5); Lymphocytes % 22.3 % (10-50); Mean Corpuscular HGB Conc 33.4 g/dL (31.8-35.4); Mean Corpuscular Hemoglobin 29.9 pg (27.0-31.2); Mean Corpuscular Volume 89.5 fl (81-99); Mean Platelet Volume 8.4 fl (7.4-10.4); Monocytes # 0.3 K/mm3 (0.1-1.0); Monocytes % 4.6 % (1.7-9.3); Neutrophils # 3.9 K/mm3 (1.8-7.8); Neutrophils % 70.9 % (37.0-80.0); Platelet Count 223 K/mm3 (142-424); Red Blood Count 4.08 M/mm3 (4.20-5.40); Red Cell Distribution Width 13.9 % (11.5-17.5); White Blood Count 5.5 K/mm3 (4.8-10.8)
[2023-11-08 18:49] LABS: Iron 60 ug/dL (37-170)
[2023-11-08 18:59] LABS: Total Iron Binding Capacity 415 ug/dL (265-497)
[2023-11-10 16:11] LABS: Peripheral Smear Review Scanned Results
== END ==
PROVIDERS: PCP Internal Medicine; Visit Provider Internal Medicine
DX: E10.40 Type 1 diabetes mellitus with diabetic neuropathy, unspecified (principal); D64.9 Anemia, unspecified; Z79.84 Long term (current) use of oral hypoglycemic drugs
CPT/HCPCS: 83540; 83550; 85025

== ENCOUNTER 2024-01-03 08:50 | Outpatient (CLI) | payer MEDICARE, MEDICAID, SELFPAY ==
--- NOTE | 2024-01-03 08:57 | XR_ITS ---
FINAL REPORT CLINICAL HISTORY: postmenopausal Osteoporosis screening COMPARISON: None FINDINGS: Using L1-4, the bone mineral density of the spine is 0.757 g/cm2, corresponding to T-score of -2.6 which is consistent with osteoporosis. Using the right hip, the bone mineral density of the femoral neck is 0.335 g/cm2, corresponding to a T-score of -4.6 which is consistent with osteoporosis. NOTE: T-score: Standard deviation compared with peak bone mass of young adult mean. *Following the recommendations of the International Society of Bone densitometry, classification of hip BMD is based on the lower of two T-scores; total hip or femoral neck. IMPRESSION: Diminished bone mineral density consistent with osteoporosis. Reviewed, Interpreted and Dictated by Dyllan Wright III, MD Transcribed by Jasmin Bishop Authenticated and [facility]
== END 2024-01-03 23:59 ==
LOC: RAD 08:51
PROVIDERS: PCP Internal Medicine; Visit Provider Internal Medicine
DX: Z78.0 Asymptomatic menopausal state (principal)
CPT/HCPCS: 77080

== ENCOUNTER 2024-01-12 20:41 | Outpatient (CLI) | payer MEDICARE, MEDICAID, SELFPAY ==
[2024-01-12 22:57] LABS: Creatinine,Urine Random 84 mg/dL (Not Estab.)
== END 2024-01-12 23:59 ==
LOC: LAB.DROPOF 20:42
PROVIDERS: PCP Internal Medicine; Visit Provider Internal Medicine
DX: E11.9 Type 2 diabetes mellitus without complications (principal); Z79.84 Long term (current) use of oral hypoglycemic drugs; Z79.899 Other long term (current) drug therapy
CPT/HCPCS: 82043; 82570

== ENCOUNTER 2024-01-19 14:00 | Outpatient (RCR) | payer MEDICARE, MEDICAID, SELFPAY ==
--- NOTE | 2023-12-27 16:10 | HMH.OTOPEV ---
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 Pt reports she believes she had her stroke ~ 2 years ago. This stroke affected her right UE and LE creating hyper-spasticity. Pt 's RUE is severely contracted at elbow, wrist, and fingers. Elbow remains flexted to ~120 degrees, wrist flexed, and all digits flexed toward palm. Therapist was unable to stretch digits into extension at any joint due to hard end feels and pain response of patient. Pt's wrist had minimal PROM in wrist extension. Therapist was able to stretch elbow into -90 degrees extension. Pt's unable to actively move right shoulder in flexion or abduction past ~70 degrees; passively to ~80 degrees before having a hard end feel. Therapist plans to begin prom manual stretching at entire RUE to attempt to improve range of motion and prevent skin breakdown. Pt currently resides with her nephew who provides total care for patient. At this time, pt is dependent with all IADLs and requires maximal assistance with ADLs such as dressing and bathing. Pt's LUE is her dominant side, but does remain limited at shoulder AROM and LUE strength . Addressing LUE AROM and strength deficits is important in order to improve overall functional use of LUE to be able to assist more with ADLS and transfers. At this times, pt requires maximal assistance to transfer to and from wheelchair. Short term goals: 1. Pt will be able to complete a stand pivot transfer from wheelchair or to wheelchair with moderate assistance and 50% verbal cues for increased functional independence in daily life. 2. Pt will complete grooming tasks with moderate assistance using LUE and 50% verbl cues for increased functional independence in daily life. 3. Pt will complete UB dressing using LUE with moderate assistance and 50% verbal cues for increased functional independence in daily life. 4. Pt will tolerate PROM manual stretching to right UE at shoulder, elbow, wrist, and digts for ~10 minutes before requiring a break in order to improve joint mobility and decrease skin breakdown. 5. Pt will tolerate LUE strengthening and AROM exercises for ~20 minutes to increase strength and overall functional use in daily activities. 6. Pt will improve strength to 3,3+/5 throughout LUE to improve overall functional use in daily activities. buttermaker goals: 1. Pt will be able to complete a stand pivot transfer from wheelchair or to wheelchair with minimal assistance and 50% verbal cues for increased functional independence in daily life. 2. Pt will complete grooming tasks with minimal assistance using LUE and 50% verbl cues for increased functional independence in daily life. 3. Pt will complete UB dressing using LUE with minimal assistance and 50% verbal cues for increased functional independence in daily life. 4. Pt will tolerate PROM manual stretching to right UE at shoulder, elbow, wrist, and digts for ~15 minutes before requiring a break in order to improve joint mobility and decrease skin breakdown. 5. Pt will tolerate LUE strengthening and AROM exercises for ~30 minutes to increase strength and overall functional use in daily activities. 6. Pt will improve strength to 4-/5 throughout LUE to improve overall functional use in daily activities. New diagnosis of cancer in past 12 No months? Chief Complaint Stiff,Weakness,Decreased Food Service Technician Strength,Decreased Coordination Shoulder/Elbow Eval Shoulder Objective Measurements Shoulder MMT Left Shoulder Abduction Strength Grade 3- Fair- Shoulder Flexion Strength Grade 3- Fair- Shoulder External Rotation Strength 3- Fair- Grade Shoulder Internal Rotation Strength 3- Fair- Grade Shoulder Strength Patient Testing Sitting Position Elbow Objective Measurements Elbow MMT Left Elbow Flexion Strength Grade 3- Fair- Elbow Extension Strength Grade 3- Fair- Supination Strength Grade 3- Fair- Pronation Strength Grade 3- Fair- Wrist/Hand Eval Wrist Manual Muscle Testing Left Wrist Extension Strength Grade 3- Fair- Wrist Flexion Strength Grade 3- Fair- Wrist Radial Deviation Strength Grade 3- Fair- Wrist Ulnar Deviation Strength Grade 3- Fair- OT Outpatient Assessment Impairments Problems/Impairments Impaired Range of Motion, Impaired Strength,Impaired Endurance,Impaired Lifting, Impaired Dressing,Impaired Shower/Bathing,Impaired Household Care,Subjective C/O Pain Prognosis Rehab Potential Fair Clinical Impression Consistent with Diagnosis Yes Outpatient Therapy Plan of Care Treatment Plan May Include Therapeutic Exercise Including Home Yes Exercise Program Manual Therapy Techniques Yes Neuromuscular Re-education Yes Therapeutic Activities to Return to Yes Previous Functional/Work Level ADL/Self Care Education Yes Thermal Modalities Yes Electrical Stimulation Yes Ultrasound/Phonophoresis Yes Iontophoresis Yes Orthotics/Bracing/Splinting Yes Massage Yes Eval/Re-Eval Yes Frequency Times per week 2 Duration Number of Weeks 6 Addendums This patient is a candidate for social No or vocational rehab? Patient/Guardian verbally acknowledges Yes understanding of treatment program and consents to further treatment? Patient/Guardian verbally acknowledges Yes understanding of diagnosis, prognosis and goals for treatment? Eval Complexity OT Charge 33434 - High Complexity PHYSICIAN CERTIFICATION: I certify the specified therapy services for Pao Kelly are required, authorized, and reviewed every 30 days.
== END 2024-01-19 15:10 | disposition home or self-care (01) ==
LOC: OT 14:00
PROVIDERS: PCP Internal Medicine; Visit Provider Internal Medicine
DX: I69.398 Other sequelae of cerebral infarction (principal)
CPT/HCPCS: 97010; 97140; 97167

== ENCOUNTER 2024-01-19 15:00 | Outpatient (RCR) | payer MEDICARE, MEDICAID, SELFPAY | END 2024-01-19 16:00 | disposition home or self-care (01) | LOC: PT 15:00 | PROVIDERS: PCP Internal Medicine; Visit Provider Internal Medicine | DX: I63.89 Other cerebral infarction | CPT/HCPCS: 97110; 97116; 97163; 97530 ==

== ENCOUNTER 2024-02-07 19:11 | Outpatient (CLI) | payer MEDICARE, MEDICAID, SELFPAY ==
[2024-02-07 18:40] LABS: Basophils # 0.1 K/mm3 (0-0.2); Basophils % 1.1 % (0.1-2.0); Eosinophils # 0.1 K/mm3 (0.0-0.4); Eosinophils % 2.2 % (0.1-12.0); Hematocrit 37.9 % (37.0-47.0); Hemoglobin 11.9 g/dL (12.2-16.2); Lymphocytes # 1.4 K/mm3 (0.7-4.5); Lymphocytes % 22.4 % (10-50); Mean Corpuscular HGB Conc 31.3 g/dL (31.8-35.4); Mean Corpuscular Hemoglobin 28.7 pg (27.0-31.2); Mean Corpuscular Volume 91.7 fl (81-99); Mean Platelet Volume 9.4 fl (7.4-10.4); Monocytes # 0.4 K/mm3 (0.1-1.0); Monocytes % 6.8 % (1.7-9.3); Neutrophils # 4.1 K/mm3 (1.8-7.8); Neutrophils % 67.5 % (37.0-80.0); Platelet Count 217 K/mm3 (142-424); Red Blood Count 4.14 M/mm3 (4.20-5.40); Red Cell Distribution Width 14.7 % (11.5-17.5); White Blood Count 6.1 K/mm3 (4.8-10.8)
== END 2024-02-07 23:59 ==
LOC: LAB.DROPOF 19:12
PROVIDERS: PCP Internal Medicine; Visit Provider Internal Medicine
DX: E11.9 Type 2 diabetes mellitus without complications; D64.9 Anemia, unspecified; R53.83 Other fatigue; Z79.84 Long term (current) use of oral hypoglycemic drugs
CPT/HCPCS: 83036; 85025

== ENCOUNTER 2024-07-10 14:04 | Outpatient (CLI) | payer MEDICARE, MEDICAID, SELFPAY ==
[2024-07-10 15:03] LABS: Basophils # 0.1 K/mm3 (0-0.2); Basophils % 0.8 % (0.1-2.0); Eosinophils # 0.2 K/mm3 (0.0-0.4); Eosinophils % 2.7 % (0.1-12.0); Hematocrit 36.7 % (37.0-47.0); Hemoglobin 11.4 g/dL (12.2-16.2); Lymphocytes # 1.3 K/mm3 (0.7-4.5); Lymphocytes % 22.3 % (10-50); Mean Corpuscular HGB Conc 31.1 g/dL (31.8-35.4); Mean Corpuscular Hemoglobin 28.4 pg (27.0-31.2); Mean Corpuscular Volume 91.3 fl (81-99); Mean Platelet Volume 8.8 fl (7.4-10.4); Monocytes # 0.4 K/mm3 (0.1-1.0); Monocytes % 6.7 % (1.7-9.3); Neutrophils % 67.6 % (37.0-80.0); Platelet Count 183 K/mm3 (142-424); Red Blood Count 4.02 M/mm3 (4.20-5.40); Red Cell Distribution Width 15.1 % (11.5-17.5); White Blood Count 5.9 K/mm3 (4.8-10.8)
[2024-07-10 15:56] LABS: Alanine Aminotransferase 13 U/L (12-78); Albumin Level 3.7 g/dl (3.5-5.0); Albumin/Globulin Ratio 1.1 (1.1-1.8); Alkaline Phosphatase 98 U/L (38-126); Anion Gap 11.1 mEq/L (5-15); Aspartate Amino Transferase 30 U/L (14-36); Bilirubin,Total 0.5 mg/dl (0.2-1.3); Blood Urea Nitrogen 24 mg/dl (7-17); Calcium 9.1 mg/dl (8.4-10.2); Carbon Dioxide 24 mmol/L (22.0-30.0); Chloride 111 mmol/L (98-107); Estimated Glomerular Filt Rate 69 ml/min (>60); GFR (African American) 84 ML/MIN (>60); Globulin 3.4 g/dL (1.3-3.2); Glucose 165 mg/dl (74-100); Potassium 4.1 mmoL/L (3.5-5.1); Sodium 142 mmol/L (136-145); Total Protein,Serum 7.1 g/dl (6.3-8.2)
== END 2024-07-10 23:59 | disposition home or self-care (01) ==
LOC: LAB 14:06
PROVIDERS: PCP Internal Medicine; Visit Provider Internal Medicine
DX: N39.0 Urinary tract infection, site not specified (principal); D64.9 Anemia, unspecified; E87.5 Hyperkalemia
CPT/HCPCS: 36415; 80053; 85025; 87086

== ENCOUNTER 2025-01-24 15:28 | Outpatient (RCR) | payer MEDICARE, MEDICAID, SELFPAY ==
--- NOTE | 2025-01-24 16:56 | HMH.PTOPWND ---
Rehab Outpt Wound Evaluation Rehab OP Wound Evaluation Start: 01/24/25 16:41 Freq: Status: Active Protocol: Document 01/24/25 16:41 VALENTE (Rec: 01/24/25 16:56 [email or web address] [id number]) E-signed By Tai Sousa, PT Subjective/History History History This is the initial Lymphedema PT eval for Pao Kelly, 79 yowf who presents with B LE increased lymphedema for many years. She reports her edema has been worse since she suffered a stroke ~10 yrs ago with considerable R side hemiparesis. She is unable to use her R UE due to severe spasticity and contracture. She is also unable to ambulate and uses a w/c for all mobility. She requires full assistance from family for transfers and ADLs. She also has a PMH of L hip fracture requiring surgical repair. Her B ankle, knee and hip ROM is severely limited due to all of these conditions. Subjective Subjective Currently she reports pain is 6/10 in B LE and 2/4 TTP to B lower legs. She presents with 4+ pitting edema in B lower legs with considerable erythema. B feet are cool to the touch with delayed capillary refill. Considerable dry skin is evident to B lower legs. Pt reports she has tried and failed conservative treatment with consistent elevation of B LE, compression use daily, and B LE ther-ex including ankle pumps and LAQ for more than 30 days. She is limited in her ability to perform all of these independently due to her significant disability. Lymphedema Eval Classification of Lymphedema Secondary Lymphedema Yes Stemmer's sign Stemmer's Sign yes Stage of Lymphedema Lymphedema stages Stage II (Pitting edema, increased fibrosis w/ decreased pitting) Skin Changes Dry Skin Yes Taut, Shiny Skin Yes Skin Folds Yes Redness Yes Wounds Yes Brittle Uneven Nails Yes Discoloration of Skin Yes Other Changes Yes Pain Scale Pain Scale (0-10) 6 Affected Extremities Areas Affected by Lymphedema/Edema Right Lower Extremity,Left Lower Extremity Lower Extremity Measurements Right MTP Measurement (cm) 26.5 Heel Measurement (cm) 33.0 10 cm Proximal to Lateral Malleoli 28.5 Measurement (cm) 20 cm Proximal to Lateral Malleoli 35.1 Measurement (cm) 30 cm Proximal to Lateral Malleoli 39.5 Measurement (cm) 40 cm Proximal to Lateral Malleoli 0 Measurement (cm) 50 cm Proximal to Lateral Malleoli 0 Measurement (cm) 60 cm Proximal to Lateral Malleoli 0 Measurement (cm) Lower Extremity Measurement Total (cm) 162.6 Left MTP Measurement (cm) 25.9 Heel Measurement (cm) 32.4 10 cm Proximal to Lateral Malleoli 27.4 Measurement (cm) 20 cm Proximal to Lateral Malleoli 33.0 Measurement (cm) 30 cm Proximal to Lateral Malleoli 40.5 Measurement (cm) 40 cm Proximal to Lateral Malleoli 0 Measurement (cm) 50 cm Proximal to Lateral Malleoli 0 Measurement (cm) 60 cm Proximal to Lateral Malleoli 0 Measurement (cm) Lower Extremity Measurement Total (cm) 159.2 Manual Lymphatic Drainage Treatment Area MLD Treatment Area Right Lower Extremity,Left Lower Extremity Wound Problems/Impairments Impairments Problems/Impairmments Palpation Tenderness,Impaired Range of Motion,Impaired Strength,Impaired Endurance, Impaired Transfers,Impaired Gait Pattern,Impaired Walking, Impaired Standing,Impaired Sitting,Impaired Dressing, Impaired Shower/Bathing, Impaired Household Care, Impaired Recreational Activities,Increased Edema, Lymphedema Present,Subjective C/O Pain,Impaired Self Care/ Self Management Prognosis Rehab Potential Good Comment Skilled therapy services are indicated to decrease overall edema burden and instruct pt and family on appropriate home care in order to aid pt return to PLOF. Clinical Impression Consistent with Diagnosis Yes Short Term Goals Number of Weeks 4 Decreased Palpation Tenderness Yes: 1/4 Decrease Edema Yes: 2+ pitting edema B lower legs Decrease Subjective C/O Pain Yes: 5/10 B lower legs Patient to Understand Lymphedema Yes Treatment and Exercises Decrease Girth Measurments by (cm) Yes: B LE total by 5 cm ea Longterm Goals Number of Weeks 8 Decreased Palpation Tenderness Yes: 0/4 B lower legs Decrease Edema Yes: 1+ pitting edema to B LE Decrease Lymphedema Yes: No fibrotic edema B lower legs Decrease Subjective C/O Pain Yes: 3/10 B LE Patient to be Ind w/ HEP Yes Patient to Adhere Lymphedema Precautions Yes Decrease Girth Measurments by (cm) Yes: B LE total by 15 cm ea Outpatient Therapy Plan of Care Treatment Plan May Include Therapeutic Exercise Including Home Yes Exercise Program Manual Therapy Techniques Yes Neuromuscular Re-education Yes Therapeutic Activities to Return to Yes Previous Functional/Work Level ADL/Self Care Education Yes Orthotics/Bracing/Splinting Yes Vasopneumatic Compression Pump Yes Manual Lymphatic Drainage Yes Eval/Re-Eval Yes Frequency Times per week 1-2 Duration Number of Weeks 8 Addendums This patient is a candidate for social No or vocational rehab? Patient/Guardian verbally acknowledges Yes understanding of treatment program and consents to further treatment? Patient/Guardian verbally acknowledges Yes understanding of diagnosis, prognosis and goals for treatment? Eval Complexity PT Charges 02334 - High Complexity PHYSICIAN CERTIFICATION: I certify the specified therapy services for Pao Kelly are required, authorized, and reviewed every 30 days.
== END 2025-01-24 23:59 | disposition home or self-care (01) ==
LOC: PT 15:28
PROVIDERS: PCP Internal Medicine; Visit Provider Internal Medicine
DX: I89.0 Lymphedema, not elsewhere classified (principal)
CPT/HCPCS: 97163

== ENCOUNTER 2025-02-21 12:48 | Outpatient (RCR) | payer MEDICARE, MEDICAID, SELFPAY | END 2025-02-21 23:59 | disposition home or self-care (01) | LOC: PT 12:48 | PROVIDERS: PCP Internal Medicine; Visit Provider Internal Medicine | DX: I89.0 Lymphedema, not elsewhere classified (principal) ==

== ENCOUNTER 2025-04-02 11:40 | Outpatient (CLI) | payer MEDICARE, MEDICAID, SELFPAY ==
[2025-04-02 18:53] LABS: Basophils # 0.1 K/mm3 (0-0.2); Basophils % 0.9 % (0.1-2.0); Eosinophils # 0.1 Kmm3 (0.0-0.4); Hematocrit 36.5 % (37.0-47.0); Hemoglobin 11.5 g/dL (12.2-16.2); Immature Granulocytes # 0.03 10^3uL; Immature Granulocytes % 0.4 %; Lymphocytes # 1.1 K/mm3 (0.7-4.5); Lymphocytes % 14.7 % (10-50); Mean Corpuscular HGB Conc 31.5 g/dL (31.8-35.4); Mean Corpuscular Hemoglobin 28.3 pg (27.0-31.2); Mean Corpuscular Volume 89.7 fl (81-99); Mean Platelet Volume 11.9 fl (7.4-10.4); Monocytes # 0.6 K/mm3 (0.1-1.0); Neutrophils # 5.8 K/mm3 (1.8-7.8); Nucleated Red Blood Cells # 0 10^3/uL; Nucleated Red Blood Cells % 0 %; Platelet Count 170 K/mm3 (142-424); Red Blood Count 4.07 M/mm3 (4.20-5.40); Red Cell Distribution Width 14.8 % (11.5-17.5); Red Cell Distribution Width-SD 48.9 fL; White Blood Count 7.7 K/mm3 (4.8-10.8)
[2025-04-02 20:00] LABS: Albumin Level 4.5 g/dl (3.5-5.0); Chloride 104 mmol/L (98-107)
[2025-04-02 20:01] LABS: Sodium 139 mmol/L (136-145)
[2025-04-02 20:03] LABS: Alanine Aminotransferase 14 U/L (12-78); Albumin/Globulin Ratio 1.5 (1.1-1.8); Alkaline Phosphatase 112 U/L (38-126); Aspartate Amino Transferase 31 U/L (14-36); Bilirubin,Total 0.6 mg/dl (0.2-1.3); Blood Urea Nitrogen 26 mg/dl (7-17); Carbon Dioxide 24 mmol/L (22.0-30.0); Estimated Glomerular Filt Rate 53 ml/min (>60); GFR (African American) 64 ML/MIN (>60); Globulin 3.1 g/dL (1.3-3.2); Total Protein,Serum 7.6 g/dl (6.3-8.2)
[2025-04-02 20:04] LABS: Calcium 9.8 mg/dl (8.4-10.2); Chol/HDL Ratio 2.7 (1-3.5); Cholesterol 165 mg/dl (140-200); Glucose 215 mg/dl (74-100); HDL Cholesterol 61 mg/dl (40-60); Triglycerides 177 mg/dl (30-150); VLDL Cholesterol 35 mg/dL (0-40)
[2025-04-02 20:06] LABS: Hemoglobin A1C 8.7 % (4.0-6.0)
[2025-04-02 20:22] LABS: Direct LDL Cholesterol 66.07 mg/dL (100-129)
== END 2025-04-02 23:59 | disposition home or self-care (01) ==
LOC: LAB.DROPOF 04-03 12:59
PROVIDERS: PCP Family Medicine; Visit Provider Family Medicine
DX: I63.9 Cerebral infarction, unspecified (principal); E11.9 Type 2 diabetes mellitus without complications
CPT/HCPCS: 80053; 80061; 83036; 85025

== ENCOUNTER 2025-06-07 14:45 | Outpatient (CLI) | payer MEDICARE, MEDICAID, SELFPAY ==
[2025-06-07 14:39] LABS: Hematocrit 33.7 % (37.0-47.0); Hemoglobin 10.6 g/dL (12.2-16.2); Immature Granulocytes % 0.4 %; Mean Corpuscular HGB Conc 31.5 g/dL (31.8-35.4); Mean Corpuscular Hemoglobin 27.2 pg (27.0-31.2); Mean Corpuscular Volume 86.4 fl (81-99); Nucleated Red Blood Cells % 0 %; Platelet Count 196 K/mm3 (142-424); Red Blood Count 3.90 M/mm3 (4.20-5.40); Red Cell Distribution Width-SD 46.2 fL; White Blood Count 7.7 K/mm3 (4.8-10.8)
--- OUTSIDE RECORDS SUMMARY | 2025-06-07 15:13 | XMS_ITS | Clinical Summary ---
Author Organization [facility] Address [address] [place] [address] Care Team Providers Care Paint Prep Technician Name Role Phone Fracisco Huynh MD Primary Care Provider + [phone] Allergies No known active allergies Medications Aspirin Buf,CaCarb-MgCa rb-MgO, 81 MG tablet Take 1 tablet by mouth 1 (one) time each day. 06/13/2019 Active atorvastatin (Lipitor) 10 MG tablet Take 1 tablet by mouth 1 (one) time each day. 09/07/2012 Active DULoxetine (Cymbalta) [address] capsule Take 1 capsule by mouth 1 (one) time each day. 06/13/2019 Active fenofibrate (Tricor) 145 MG tablet Take 1 tablet by mouth 1 (one) time each day. 09/07/2012 Active Fesoterodine Fumarate ER (Toviaz) 8 MG tablet sustained-relea se 24 hour Take 1 capsule by mouth 1 (one) time each day. 02/12/2014 Active insulin glargine (Lantus) 100 UNIT/ML injection Take 10 Units by mouth if needed. Sliding scale as directed 09/12/2012 Active lisinopril 20 MG tablet Take 1 tablet by mouth 1 (one) time each day. 09/07/2012 Active metFORMIN XR (Glucophage-XR) 500 MG 24 hr tablet Take 2 tablets by mouth 1 (one) time each day. With evening meal 09/07/2012 Active oxyCODONE-aceta minophen (Percocet) 5-325 MG tablet Take 1 tablet by mouth every 6 (six) hours. Prn pain 06/13/2019 Active pantoprazole (ProtoNix) 40 MG EC tablet Take 1 tablet by mouth 1 (one) time each day. 06/13/2019 Active potassium chloride CR (Klor-Con M20) 20 MEQ ER tablet Take 1 tablet by mouth 1 (one) time each day. 10/17/2012 Active pregabalin (Lyrica) 150 MG capsule Take 1 capsule by mouth 3 (three) times a day. 08/23/2012 Active Active Problems Problem Noted Date Diagnosed Date Microalbuminuria 06/05/2019 Microscopic hematuria 05/16/2013 Abnormal finding in urine 03/06/2013 Essential (primary) hypertension 02/03/2013 Fibromyalgia 02/03/2013 Postmenopausal atrophic vaginitis 02/03/2013 Urge incontinence 02/03/2013 Type 2 diabetes mellitus without (mention of) co mplications 02/03/2013 Overview (08/24/2022): Regulatory Update August 2022 Social History Tobacco Use Types Packs/Day Years Used Date Smoking Tobacco: Never Smokeless Tobacco: Never Alcohol Use Standard Drinks/Week Comments No 0 (1 standard drink = 0.6 oz pure alcohol) Alcoholic Drinks/day: Never Drank Alcohol Comments Unknown Sex and Gender Information Value Date Recorded Sex Assigned at Not on file Legal Sex Female 7:37 PM EDT Gender Identity Not on file Sexual Orientation Not on file Last Filed Vital Signs Vital Sign Reading Time Taken Comments Blood Pressure 133/59 05/15/2013 3:57 PM EDT Pulse 101 05/15/2013 3:57 PM EDT Temperature - - Respiratory Rate - - Oxygen Saturation 95% 05/15/2013 3:57 PM EDT Inhaled Oxygen Concentration - - Weight 83.9 kg (185 lb) 05/15/2013 3:57 PM EDT Height 154.9 cm (5' 1 ) 05/15/2013 3:57 PM EDT Body Mass Index 34.96 05/15/2013 3:57 PM EDT Plan of Treatment Health Maintenance Due Date Last Done Comments [facility]-Bone Density Scan 1944 [facility]-Depression Screening 1944 [facility]-Infant/Child/Adol SDOH Screenings 1944 [facility]- SDOH Screenings 1962 [facility]-Adult SDOH Screenings 1962 [facility]-DTaP,Tdap,and Td Vaccines (1 - Tdap) 1963 [facility]-Pneumococcal Vaccine: 50+ Years (1 of 1 - PCV) 1994 [facility]-Zoster Vaccines (1 of 2) 1994 [facility]-RSV Vaccine: 60+ Years or (1 - 1-dose 75+ series) 2019 [id number] Vaccine (1 - 2023- season) 2024 [facility]-Influenza Vaccine (#1) 07/23/202508/31, 08/12/2018, 09/19/2015, Additional history exists HPV Vaccines Aged Out No longer eligi ble based on patient's age to complete this topic [facility]-HIB Vaccines Aged Out No longer e ligible based on patient's age to complete this topic [facility]-Hepatitis A Vaccines Aged Out No longer eligible based on patient's age to complete this topic [facility]-IPV Vaccines Aged Out No longer e ligible based on patient's age to complete this topic [facility]-Rotavirus Vaccines Aged Out No lo nger eligible based on patient's age to complete this topic Insurance [employer] Care Teams Paint Prep Technician Relationship Specialty Start Date End Date Fracisco Huynh MD [address] [place] [id number] PCP - General 04/04/21
[2025-06-07 15:42] LABS: Alanine Aminotransferase 11 U/L (12-78); Albumin Level 4.1 g/dl (3.5-5.0); Albumin/Globulin Ratio 1.2 (1.1-1.8); Alkaline Phosphatase 113 U/L (38-126); Anion Gap 16.6 mEq/L (5-15); Aspartate Amino Transferase 27 U/L (14-36); Bilirubin,Total 0.7 mg/dl (0.2-1.3); Blood Urea Nitrogen 21 mg/dl (7-17); Calcium 9.8 mg/dl (8.4-10.2); Carbon Dioxide 27 mmol/L (22.0-30.0); Chloride 96 mmol/L (98-107); Creatinine,Serum 1.00 mg/dl (0.52-1.04); Estimated Glomerular Filt Rate 53 ml/min (>60); GFR (African American) 64 ML/MIN (>60); Globulin 3.3 g/dL (1.3-3.2); Glucose 250 mg/dl (74-100); Potassium 3.6 mmoL/L (3.5-5.1); Sodium 136 mmol/L (136-145); Total Protein,Serum 7.4 g/dl (6.3-8.2)
== END 2025-06-07 23:59 | disposition home or self-care (01) ==
LOC: LAB.DROPOF 14:45
PROVIDERS: PCP Family Medicine; Visit Provider Family Medicine
DX: L29.9 Pruritus, unspecified (principal); I10 Essential (primary) hypertension
CPT/HCPCS: 80053; 85025